=== PATIENT | male | born 1985 | race Caucasian/White ===

== ENCOUNTER → 2017-02-01 | Outpatient (CLI) | payer OTHER ==
[~2017-02-01] MED LIST: PERFLUTREN LIPID MICROSPHERE (DEFINITY) IV ONE
--- NOTE | 2017-02-01 17:03 | EXERCISE STRESS ECHO ---
*NOTICE TO RECEIVING REPUBLICAN AGENCY This information is strictly Confidential and protected under [place] law. [place] law prohibits you from making any further disclosure of this information unless further disclosure is expressly permitted by the written consent of the person to whom it pertains or is authorized by law. A general authorization for the release of medical or other information is not sufficient for this purpose. Hospital accepts no responsibility if the information is made available to any other person, INCLUDING THE PATIENT. Interpretation Summary * Name: EMILIANO HADLEY Study Date: 02/01/2017 10:14 AM BP: 130/65 mmHg * Patient Location: [facility] HR: 80 * : 1985 (M/d/yyyy) Gender: Male Height: 72 in * Age: 31 yrs Ethnicity: CA Weight: 204 lb * Ordering Physician: Alonso Centeno * Referring Physician: Alonso Centeno * Performed By: María Cardenas RDCS * * Reason For Study: Chest pain * BSA: 2.1 m2 * The exercise echocardiographic examination is normal without resting left ventricular wall motion abnormalities or inducible ischemia. * Exercise capacity is average. * -- Conclusions -- * Ejection Fraction = 60-65%. * Pulse wave TDI of the anterior and posterior mitral annulas demonstrates normal LV relaxation * No significant valvular pathology. Procedure Details * ECHOEX, CPT #04194 * ECHO DOPPLER, CPT #[id number] * ECHO COLOR FLOW, CPT #[id number] * A contrast injection of Definity was performed to improve assessment of LV function. * Contrast was injected into an intravenous site in the left arm. * One vial of Definity ultrasound contrast was diluted in normal saline to a total volume of 10 ml. A total of '4' ml of solution was administered during imaging. * Lot # [id number] of Definity utilized for procedure. * Expiration date FEB 20. * The attending nurse who injected the contrast agent was Esperanza Bowman RN. Left Ventricle * The left ventricle is normal in size. * There is no thrombus. * There is normal left ventricular wall thickness. * Ejection Fraction = 60-65%. * Left ventricular systolic function is normal. * Resting wall motion: Normal. Stress wall motion: Appropriate increase in Left ventricular systolic function and decrease in cavity size. No stress induced segmental wall motion abnormalities. * The left ventricular ejection fraction increases normally with stress. The left ventricular end-systolic cavity size reduces post-stress (normal response). The left ventricular wall motion with stress is normal. Right Ventricle * The right ventricle is normal in size and function. Atria * The left atrial size is normal. * Right atrial size is normal. * No ASD detected; PFO is not assessed. Mitral Valve * The mitral valve is normal. * There is no mitral valve stenosis. * Significant mitral regurgitation is absent. Tricuspid Valve * The tricuspid valve is normal. * There is no tricuspid stenosis. * There is trace tricuspid regurgitation. Aortic Valve * The aortic valve is trileaflet. * No hemodynamically significant valvular aortic stenosis. * No aortic regurgitation is present. Pulmonic Valve * The pulmonic valve is not well visualized. Great Vessels * The aortic root is normal size. Pericardium * There is no pericardial effusion. Stress Parameters * The baseline ECG displays normal sinus rhythm. * Stress ECG: No ST changes. No arrhythmias. * The stress portion of this study was personally supervised by the undersigned interpreting physician. * Rest heart rate was '80' BPM. * Rest blood pressure was '130/65' * Maximum heart rate achieved was 196 bpm. * Maximum heart rate was 103 % of maximum age-predicted heart rate. * Maximum blood pressure was '181/74' * Total exercise time was '11:40' * Maximum exercise MET level achieved was '13.40' METS * Maximum treadmill speed was '4.20' miles per hour. * Maximum treadmill elevation was '16.00'% grade. * Exercise was terminated due to 'achieving target heart rate' * Normal blood pressure response to exercise. * Exercise was stopped due to fatigue. * Average exercise tolerance. Left Ventricular Diastolic Function * Pulse wave TDI of the anterior and posterior mitral annulas demonstrates normal LV relaxation MMode 2D Measurements and Calculations IVSd 0.72 cm LVIDd 4.4 cm LVIDs 3.0 cm LVPWd 1.0 cm IVS/LVPW 0.70 FS 33.1 % EDV(Teich) 88.8 ml ESV(Teich) 33.8 ml EF(Teich) 61.9 % EDV(cubed) 86.5 ml ESV(cubed) 25.9 ml EF(cubed) 70.1 % LV mass(C)d 123.3 grams LV mass(C)dI 57.4 grams/m\S\2 SV(Teich) 54.9 ml SI(Teich) 25.6 ml/m\S\2 SV(cubed) 60.6 ml SI(cubed) 28.2 ml/m\S\2 Ao root diam 3.0 cm Ao root area 7.3 cm\S\2 ACS 2.3 cm LA dimension 3.5 cm asc Aorta Diam 3.0 cm LA/Ao 1.2 LVOT diam 2.0 cm LVOT area 3.1 cm\S\2 LVAd ap4 35.0 cm\S\2 LVLd ap4 8.6 cm EDV(MOD-sp4) 118.9 ml EDV(sp4-el) 120.4 ml LVAs ap4 17.9 cm\S\2 LVLs ap4 6.5 cm ESV(MOD-sp4) 42.5 ml ESV(sp4-el) 41.9 ml EF(MOD-sp4) 64.3 % EF(sp4-el) 65.2 % LVAd ap2 26.6 cm\S\2 LVLd ap2 7.6 cm EDV(MOD-sp2) 76.4 ml EDV(sp2-el) 78.9 ml LVAs ap2 13.5 cm\S\2 LVLs ap2 6.0 cm ESV(MOD-sp2) 26.0 ml ESV(sp2-el) 25.6 ml EF(MOD-sp2) 65.9 % EF(sp2-el) 67.6 % LVLd %diff -13.58 % EDV(MOD-bp) 100.7 ml LVLs %diff -7.63 % ESV(MOD-bp) 34.8 ml EF(MOD-bp) 65.5 % SV(MOD-sp4) 76.4 ml SI(MOD-sp4) 35.6 ml/m\S\2 SV(MOD-sp2) 50.4 ml SI(MOD-sp2) 23.5 ml/m\S\2 SV(MOD-bp) 65.9 ml SI(MOD-bp) 30.7 ml/m\S\2 SV(sp4-el) 78.5 ml SI(sp4-el) 36.5 ml/m\S\2 SV(sp2-el) 53.4 ml SI(sp2-el) 24.8 ml/m\S\2 Doppler Measurements and Calculations MV E max rafael 85.2 cm/sec MV A max rafael 42.1 cm/sec MV E/A 2.0 MV dec time 0.33 sec Ao V2 max 120.4 cm/sec Ao max PG 5.8 mmHg Ao max PG (full) 2.8 mmHg MICHAEL(V,A) 2.2 cm\S\2 MICHAEL(V,D) 2.2 cm\S\2 LV V1 max PG 3.0 mmHg LV V1 max 86.0 cm/sec PA V2 max 92.0 cm/sec PA max PG 3.4 mmHg PA acc slope 530.2 cm/sec\S\2 PA acc time 0.13 sec PI max rafael 120.9 cm/sec PI max PG 5.8 mmHg PI dec slope 64.5 cm/sec\S\2 PI P1/2t 549.1 msec TR max rafael 94.4 cm/sec PA pr(Accel) 18.6 mmHg
== END | disposition home or self-care (01) ==
LOC: C.CPL 10:03
PROVIDERS: ATTEND Internal Medicine Interventional Cardiology
DX: R07.9 Chest pain, unspecified (principal)

== ENCOUNTER 2017-07-13 10:35 | Emergency (ER) | payer OTHER ==
[~2017-07-13] VITALS: Ht 182.9 cm; Wt 94.0 kg
[2017-07-13 10:41] VITALS: TEMP 36.7; Ht 182.9 cm; Wt 94.0 kg
[2017-07-13] MEDS ORDERED: SODIUM CHLORIDE 0.9% 1000ML 1,000 ML IV STA (11:03)
[2017-07-13] MEDS ORDERED: ASPIRIN 81 MG CHEW PO STA (11:03)
[2017-07-13 11:11] VITALS: O2SAT 98
--- NOTE | 2017-07-13 11:12 | EMERGENCY ROOM VISIT NOTE ---
History Report prepared by Mignon: Юлия Miller Under the Supervision of: Dr. Roger Hale M.D. First contact with patient: 10:50 Chief Complaint: CHEST PAIN Stated Complaint: KIDNEY/CHEST PAIN Nursing Triage Summary: [facility] chest discomfort symptoms in january. came back from [place] and saw a hearing therapy teacher. had stress test completed. unknown of results but pain went away. patient states pain reoccured started 2 weeks ago. since then patient has had intermittent chest tightness that radiates to left side of arm. c/o numbness and tingling to left arm. patient states pain worsened last night. more localized to left side of chest. History of Present Illness The patient is a 31 year old male who presents to the Emergency Room with complaints of intermittent chest pain and left arm pain beginning in January 2017 when he went to [facility]. His chest pain reoccurred in the last few days. Pain is over his left chest and radiates to his left arm. Pain is mild in nature, feels like pressure/throbbing. No associated shortness of breath. He notes that 2 weeks ago, he had pain in his left lower thigh and describes the pain as a pressure. He denies any recent travel, hemoptysis, exogenous hormone usage, or history of thromboembolic disease. He reports he has been having chest pain since January 2017. He reports he had a stress test done here on but does not know his results. Source of History: patient Onset: January 2017 Position: chest, arm (left) Quality: pressure Timing: intermittent Associated Symptoms: + numbness (left fingers) Review of Systems See HPI for pertinent positives and negatives. A total of ten systems were reviewed and were otherwise negative. Family History No pertinent family history Social History Smoking Status: Former Smoker Drug Use: none Current/Historical Medications Scheduled PRN Aspirin (Darrell Aspirin Ec Low Dose), 324 MG PO DAILY PRN for Pain or Fever Allergies Coded Allergies: No Known Allergies (Unverified , 07/13/17) Physical Exam Vital Signs Date Time Temp Pulse Resp B/P (MAP) Pulse Ox O2 Delivery O2 Flow Rate FiO2 07/13/17 13:31 61 20 120/75 99 Room Air 07/13/17 13:19 56 07/13/17 12:31 56 20 134/75 99 Room Air 07/13/17 11:16 79 20 124/83 96 Room Air 07/13/17 11:11 98 Room Air 07/13/17 11:11 98 Room Air 07/13/17 11:00 98 Room Air 07/13/17 10:59 77 07/13/17 10:41 36.7 82 18 139/81 96 Room Air Physical Exam Physical Exam GENERAL: He is oriented to person, place, and time. He appears well-developed and well-nourished. He does not appear distressed. ____ HENT: Exam performed. Head: Normocephalic and atraumatic. Right Ear: External ear normal. No mastoid tenderness. Left Ear: External ear normal. No mastoid tenderness. Mouth/Throat: The oropharynx is clear and moist. No trismus in the jaw. No dental abscesses or uvula swelling. No oropharyngeal exudate or tonsillar abscesses. ____ EYES: Conjunctivae and EOM are normal. Pupils are equal, round, and reactive to light. Right eye exhibits no discharge. Left eye exhibits no discharge. No scleral icterus. ____ NECK: Normal range of motion. Neck supple. No JVD present. No spinous process tenderness present. No carotid bruit present. No rigidity. No tracheal deviation and normal range of motion present. No Brudzinski's sign and no Kernig 's sign noted. ____ CV: Normal rate, regular rhythm, normal heart sounds and intact distal pulses. There is no peripheral edema. Palpable radial pulses bue. ____ PULM/CHEST: Effort normal and breath sounds normal. No respiratory distress. No stridor. He has no wheezes. He has no rales. Chest Wall: He exhibits no tenderness. ____ ABD: The abdomen is soft. Bowel sounds are normal. He has no distension. No mass is present. There is no tenderness. There is no rebound, no guarding, no Carpio's sign and no tenderness at McBurney's point. Rovsig negative MUSC/SKEL: Normal range of motion. There is no peripheral edema or deformity. Pain on palpation of the left posterior thigh and popliteal area. Palpable DP and PT pulses bilaterally. LYMPH: No cervical adenopathy. ____ NEURO: He is alert and oriented to person, place, and time. He has normal strength. No cranial nerve deficit or sensory deficit. Coordination and gait normal. GCS eye subscore is 4. GCS verbal subscore is 5. GCS motor subscore is 6. Cerebellar tests wnl. ____ SKIN: Skin is warm and dry. He is not diaphoretic. ____ PSYCH: He has a normal mood and affect. His behavior is normal. Judgment and thought content normal. ____ Medical Decision & Procedures ER Provider Diagnostic Interpretation: Radiology results as stated below per my review and radiologist interpretation: BILATERAL LOWER EXTREMITY VENOUS DOPPLER HISTORY: Acute bilateral lower extremity swelling r/o dvt COMPARISON STUDY: None. FINDINGS: There is normal compressibility, flow, and augmentation within the bilateral lower extremity deep venous systems. IMPRESSION: No sonographic evidence of deep venous thrombosis within the right or left lower extremity. Electronically signed by: Hang Fuchs M.D. 07/13/2017 12:04 PM Dictated Date/Time: 07/13/2017 12:03 PM Laboratory Results 07/13/17 11:00 Red Blood Count 5.26, Mean Corpuscular Volume 86.7, Mean Corpuscular Hemoglobin 31.0, Mean Corpuscular Hemoglobin Concent 35.7, Mean Platelet Volume 10.2, Neutrophils (%) (Auto) 65.3, Lymphocytes (%) (Auto) 25.4, Monocytes (%) (Auto) 6.9, Eosinophils (%) (Auto) 1.3, Basophils (%) (Auto) 0.5, Neutrophils # (Auto) 5.59, Lymphocytes # (Auto) 2.17, Monocytes # (Auto) 0.59, Eosinophils # (Auto) 0.11, Basophils # (Auto) 0.04 07/13/17 11:00 Test 07/13/17 11:00 07/13/17 12:05 White Blood Count 8.55 K/uL (4.8-10.8) Red Blood Count 5.26 M/uL (4.7-6.1) Hemoglobin 16.3 g/dL (14.0-18.0) Hematocrit 45.6 % (42-52) Mean Corpuscular Volume 86.7 fL (80-100) Mean Corpuscular Hemoglobin 31.0 pg (25-34) Mean Corpuscular Hemoglobin Concent 35.7 g/dl (32-36) Platelet Count 263 K/uL (130-400) Mean Platelet Volume 10.2 fL (7.4-10.4) Neutrophils (%) (Auto) 65.3 % Lymphocytes (%) (Auto) 25.4 % Monocytes (%) (Auto) 6.9 % Eosinophils (%) (Auto) 1.3 % Basophils (%) (Auto) 0.5 % Neutrophils # (Auto) 5.59 K/uL (1.4-6.5) Lymphocytes # (Auto) 2.17 K/uL (1.2-3.4) Monocytes # (Auto) 0.59 K/uL (0.11-0.59) Eosinophils # (Auto) 0.11 K/uL (0-0.5) Basophils # (Auto) 0.04 K/uL (0-0.2) RDW Standard Deviation 39.2 fL (36.4-46.3) RDW Coefficient of Variation 12.3 % (11.5-14.5) Immature Granulocyte % (Auto) 0.6 % Immature Granulocyte # (Auto) 0.05 K/uL (0.00-0.02) Prothrombin Time 10.0 SECONDS (9.0-12.0) Prothromb Time International Ratio 1.0 (0.9-1.1) Activated Partial Thromboplast Time 27.3 SECONDS (21.0-31.0) Partial Thromboplastin Ratio 1.1 D-Dimer < 190 ug/L FEU (0-500) Anion Gap 8.0 mmol/L (3-11) Est Creatinine Clear Calc Drug Dose 126.1 ml/min Estimated GFR () 113.8 Estimated GFR (Non- 98.2 BUN/Creatinine Ratio 22.2 (10-20) Calcium Level 9.2 mg/dl (8.5-10.1) Troponin I < 0.015 ng/ml (0-0.045) Urine Color YELLOW Urine Appearance CLEAR (CLEAR) Urine pH 7.0 (4.5-7.5) Urine Specific [place] 1.018 (1.000-1.030) Urine Protein NEG (NEG) Urine Glucose (UA) NEG (NEG) Urine Ketones NEG (NEG) Urine Occult Blood NEG (NEG) Urine Nitrite NEG (NEG) Urine Bilirubin NEG (NEG) Urine Urobilinogen NEG (NEG) Urine Leukocyte Esterase NEG (NEG) Urine Opiates Screen NEG (NEG) Urine Methadone, Qualitative NEG (NEG) Urine Barbiturates NEG (NEG) Urine Phencyclidine (PCP) Level NEG (NEG) Ur Amphetamine/Methamphetamine NEG (NEG) MDMA (Ecstasy) Screen NEG (NEG) Urine Benzodiazepines Screen NEG (NEG) Urine Cocaine Metabolite NEG (NEG) Urine Marijuana (THC) NEG (NEG) Laboratory results reviewed by me Medications Administered Medications (Trade) Dose Ordered Sig/Gwen Route Start Time Stop Time Status Last Admin Dose Admin Aspirin (Aspirin Chew) 324 mg NOW STAT PO 07/13/17 11:03 07/13/17 11:06 DC 07/13/17 11:15 324 MG Sodium Chloride 1,000 ml @ 999 mls/hr Q1H1M STAT IV 07/13/17 11:03 07/13/17 12:03 DC 07/13/17 11:15 999 MLS/HR ECG Per My Interpretation Indication: chest pain Rate (beats per minute): 63 Rhythm: sinus rhythm Findings: other (MO and QRS and QTC within normal limits, no ST elevation or depression) Change: Repeat EKG: sinus rhythm, rate of 72, MO and QRS and QTS within normal limits, no ST elevation or depression ED Course 1059: The patient was evaluated in room C3. A complete history and physical exam was performed. EMR reviewed, patient had a negative stress echo done in January 2017. 1103: Sodium chloride 1000 ml @ 999 mls/hr IV Aspirin 324 mg PO 1319: Vital signs are stable. Labs within normal limits including troponin and d -dimer. EKG and imaging within normal limits. Follow up for regular scheduled PCP appointment. DISCHARGE - Plan of care discussed with patient and questions answered. The patient was given both verbal and printed discharge instructions. The patient verbalized understanding and ability to comply. The patient is to seek outpatient follow up as noted in the discharge instructions. The patient verbalized understanding and ability to comply. The patient is discharged in stable condition. The patient was instructed to return for worsening symptoms. Medical Decision EMR reviewed, patient had a negative stress echo done in January 2017. Vital signs are stable. Labs within normal limits including troponin and d-dimer. EKG and imaging within normal limits. Follow up for regular scheduled PCP appointment. DISCHARGE - Plan of care discussed with patient and questions answered. The patient was given both verbal and printed discharge instructions. The patient verbalized understanding and ability to comply. The patient is to seek outpatient follow up as noted in the discharge instructions. The patient verbalized understanding and ability to comply. The patient is discharged in stable condition. The patient was instructed to return for worsening symptoms. Medication Reconcilliation Current Medication List: was personally reviewed by me Blood Pressure Screening Patient's blood pressure: Normal blood pressure Blood pressure disposition: Did not require urgent referral Impression Primary Impression: Chest pain Scribe Attestation The scribe's documentation has been prepared under my direction and personally reviewed by me in its entirety. I confirm that the note above accurately reflects all work, treatment, procedures, and medical decision making performed by me. The chart was completed utilizing [email or web address] Speech voice recognition software. Grammatical errors, random word insertions, pronoun errors, and incomplete sentences are an occasional consequence of this system due to software limitations, ambient noise, and hardware issues. Any formal questions or concerns about the content, text, or information contained within the body of this dictation should be directly addressed to the physician for clarification. Departure Information Dispostion Home / Self-Care Referrals Alondra Khan DO (PCP) Forms HOME CARE DOCUMENTATION FORM, IMPORTANT VISIT INFORMATION Patient Instructions My [facility] Problem Qualifiers Primary Impression: Chest pain Chest pain type: unspecified Qualified Codes: R07.9 - Chest pain, unspecified
[2017-07-13 11:13] LABS: BASO % 0.5 %; BASO ABS # 0.04 K/uL (0-0.2); EOS % 1.3 %; EOS ABS # 0.11 K/uL (0-0.5); HEMATOCRIT 45.6 % (42-52); HEMOGLOBIN 16.3 g/dL (14.0-18.0); IG# 0.05 K/uL (0.00-0.02); LYMPH % 25.4 %; LYMPH ABS # 2.17 K/uL (1.2-3.4); MEAN CELL VOLUME 86.7 fL (80-100); MEAN CORPUSCULAR HGB CONC 35.7 g/dl (32-36); MEAN PLATELET VOLUME 10.2 fL (7.4-10.4); MONO % 6.9 %; MONO ABS # 0.59 K/uL (0.11-0.59); NEUT % 65.3 %; NEUT ABS # 5.59 K/uL (1.4-6.5); PLATELET COUNT 263 K/uL (130-400); RED CELL DISTRIBUTION WIDTH CV 12.3 % (11.5-14.5); RED CELL DISTRIBUTION WIDTH SD 39.2 fL (36.4-46.3); WHITE BLOOD COUNT 8.55 K/uL (4.8-10.8)
[2017-07-13 11:25] LABS: PTT PATIENT 27.3 SECONDS (21.0-31.0)
[2017-07-13 11:28] LABS: BLOOD UREA NITROGEN 23 mg/dl (7-18); CALCIUM 9.2 mg/dl (8.5-10.1); CARBON DIOXIDE 26 mmol/L (21-32); CREATININE 1.02 mg/dl (0.60-1.40); GLUCOSE 103 mg/dl (70-99); SODIUM 136 mmol/L (136-145)
--- NOTE | 2017-07-13 12:05 | DIAGNOSTIC IMAGING REPORT ---
BILATERAL LOWER EXTREMITY VENOUS DOPPLER HISTORY: Acute bilateral lower extremity swelling r/o dvt COMPARISON STUDY: None. FINDINGS: There is normal compressibility, flow, and augmentation within the bilateral lower extremity deep venous systems. IMPRESSION: No sonographic evidence of deep venous thrombosis within the right or left lower extremity. Electronically signed by: Hang Fuchs M.D. 07/13/2017 12:04 PM Dictated Date/Time: 07/13/2017 12:03 PM
[2017-07-13] MEDS ORDERED: ASPI1TAB2 PO (12:10)
[2017-07-13 13:31] VITALS: BP 120/75; PULSE 61; O2SAT 99
--- NOTE | 2017-07-13 13:48 | DIAGNOSTIC IMAGING REPORT ---
CHEST 2 VIEWS ROUTINE HISTORY: 31 years-old Male cp acute atypical chest pain COMPARISON: None available TECHNIQUE: PA and lateral views of the chest FINDINGS: Cardiomediastinal and hilar silhouettes are within normal limits. No pneumothorax, pleural effusion, focal airspace consolidation or overt pulmonary edema. The bones of the chest appear grossly intact. IMPRESSION: No acute process. The above report was generated using voice recognition software. It may contain grammatical, syntax or spelling errors. Electronically signed by: Hang Fuchs M.D. 07/13/2017 1:47 PM Dictated Date/Time: 07/13/2017 1:46 PM
== END 2017-07-13 13:47 | disposition home or self-care (01) ==
LOC: C.EDB 10:38 → C.EDC 13:47
DX: R07.9 Chest pain, unspecified (principal); Z87.891 Personal history of nicotine dependence

== ENCOUNTER 2018-05-01 12:44 | Inpatient (IN) ==
[2018-05-01] MEDS ORDERED: ONDANSETRON INJ 2 MG/ML 2 ML VIAL IV PRN (17:04)
[2018-05-01] MEDS ORDERED: ACETAMINOPHEN 325 MG TAB PO PRN (17:04)
[2018-05-01] MEDS ORDERED: ALUMINUM/MAGNESIUM SUSP 30 ML UDC PO PRN (17:04)
--- NOTE | 2018-05-01 17:18 | History & Physical Report ---
Date of Service May 01, 2018 Assessment & Plan (1) Paresthesias: This patient is a 32-year-old male with a history of seasonal allergies and a 1 year history of intermittent chest pain with radiation to the left upper and lower extremity, who presents with 1 month of progressively worsening symptoms which mainly include dry cough, worsening SOB, severe fatigue, dizziness, heaviness and tight feeling in the left lower extremity, diffuse muscle spasms but mostly pains in the upper and lower back, constant mild headache, and bilateral upper extremity numbness in the distribution of the ulnar side of the forearm and the fourth and fifth digits of each hand. He has also had blurry vision in the right eye off and on the last several days and did have one episode of numbness in the roof of his mouth. His symptoms are diffuse but seem like they could all be interrelated with either a neurological disorder or perhaps an autoimmune disorder given his strongly positive ELIU. He does have a pending appointment with a charting clerk at [facility] in [place] on May 08 that he should keep regarding his positive ELIU and his symptoms. Lyme disease titer again is negative on multiple occasions despite his significant exposure to Lyme disease. I do feel that he warrants an expedited neurological workup as well to rule out intracranial lesion, or spinal cord lesion, multiple sclerosis. With the blurry vision in the right eye, need to consider optic neuritis. -Admit to telemetry given the chest pain and shortness of breath symptoms for further cardiac workup as below -Consult neurology for further evaluation and recommendations as appreciated -Check RPR, B12 -Check MRI of the brain, cervical spine, and thoracic spine -Consideration should be made for lumbar puncture but will await neurology evaluation and recommendations before proceeding with this (2) Dizziness: He reports worsening dizziness like the room is spinning around him and sometimes with tunnel vision, as well as a mild bitemporal headache that radiates to the parietal and occipital regions bilaterally and not associated with photophobia, but is associated with nausea for the last 3-4 weeks. He is also had intermittent right eye blurry vision that comes on for 1-2 hours at a time and then goes away. He has not seen an bottom turner -Check MRI of the brain -Consult neurology given the host of symptoms of dizziness, headache, paresthesias, and intermittent weakness (3) Headache: See above -Can take Tylenol as needed (4) Blurry vision, right eye: Plan as above (5) Chest pain: The chest pain, shortness of breath, and left-sided heavy sensation has been coming and going for over a year since he had a trip to [facility]. Since that time, he had a normal cardiac workup to include echocardiogram, 24-hour Holter monitor, ECG. In the last month, however those symptoms have all gotten progressively worse and become constant and more severe. 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 He was seen in the ER on 04/[address] angiogram of the chest that was negative for PE or any other abnormality. ECG here is normal There is no evidence on exam of congestive heart failure. Chest x-ray is normal here again. Troponin is negative He could have some sort of pericarditis although less likely without ECG changes This has seemed to have gotten better after several doses of prednisone which is now discontinued, as well as starting on doxycycline Perhaps it was some sort of atypical pneumonitis that is now improving with doxycycline and 2 doses of prednisone -Check echocardiogram -Monitor on telemetry -Continue doxycycline 100 mg p.o. twice daily for now to finish out a 10-day course (6) Fatigue: Monospot has been negative, Lyme disease negative, unclear with the causes Could be something autoimmune related given the positive ELIU -Continue workup here as outlined -Keep appointment with rheumatology next week (7) Weakness: In the left upper and lower extremity subjectively, but none in exam here. He reports this is intermittent -Checking MRI of the brain, cervical and thoracic spine as above -Appreciate neurology recommendations (8) Dyspnea: Pulse ox at rest here is 95% on room air, pulse ox with ambulation does go down to 92% which is abnormal. Chest x-ray is normal. ABG here is normal He had CT angiogram 1 month ago when he had similar symptoms that was negative for pulmonary embolism -Checking echocardiogram -Continue treatment with doxycycline for bronchitis (9) Back pain: Coming and going, likely related to systemic process -Tylenol as needed for pain -MRIs for workup as above (10) DVT prophylaxis: SCDs Disposition-admit to telemetry unit History of Present Illness Chief Complaint: shortness of breath, bilateral upper extremity numbness/ tingling, left lower extremity weakness Primary Care Provider: Alondra Khan, This patient is a 32-year-old male with a history of seasonal allergies and a 1 year history of intermittent chest pain with radiation to the left upper and lower extremity, who presents with 1 month of progressively worsening symptoms which mainly include dry cough, worsening shortness of breath, severe fatigue, dizziness, heaviness and tight feeling in the left lower extremity, diffuse muscle spasms but mostly pains in the upper and lower back, constant mild headache, and bilateral upper extremity numbness in the distribution of the ulnar side of the forearm and the fourth and fifth digits of each hand. He has also had blurry vision in the right eye off and on the last several days and did have one episode of numbness in the roof of his mouth. The chest pain, shortness of breath, and left-sided heavy sensation has been coming and going for over a year since he had a trip to [facility]. Since that time, he had a normal cardiac workup to include echocardiogram, 24-hour Holter monitor, ECG. In the last month, however those symptoms have all gotten progressively worse and become constant and more severe. 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 He was seen in the ER on 04/[address] angiogram of the chest that was negative for PE or any other abnormality. He also reports worsening dizziness like the room is spinning around him and sometimes with tunnel vision, as well as a mild bitemporal headache that radiates to the parietal and occipital regions bilaterally and not associated with photophobia, but is associated with nausea for the last 3-4 weeks. He is also had intermittent right eye blurry vision that comes on for 1-2 hours at a time and then goes away. He has not seen an bottom turner. He was referred to a upper and bottom lacer hand whom he saw 1 week ago who ordered a variety of studies including carotid Doppler, lower extremity arterial Doppler, hypersensitivity pneumonitis panel, Lyme titer, immunoglobulins, IgE, all of which were normal. He was started on Doxycycline and prednisone, but 2 days after starting these medications is when he experienced the paresthesias and numbness in the ulnar distribution of the bilateral upper extremities; he decided to stop the prednisone thinking it was a possible side effect. ROS: He denies any fevers but has had some sweats and chills. He has lost 10 pounds in the last month unintentionally. He denies any lymphadenopathy that he is noted. He denies abdominal pains or urinary symptoms, no changes in bowel habits, no blood in the stool or urine. Denies any other joint pains or swelling. He denies any other rashes He has been bit by a tick at least "50-60 times" in his life and he works at a [employer] in the [employer]. He conversed with his PCP who asked that we directly admit the patient to expedite a neurological workup given the progressive nature of his symptoms. I personally spoke with his PCP on the phone regarding his history and current condition. Allergies Allergy/AdvReac Type Severity Reaction Status Date / Time No Known Allergies Allergy Verified 04/13/18 18:30 Home Medications Home Medications Medication Instructions Recorded Confirmed Type meclizine 25 mg PO TID PRN #14 tab 04/13/18 05/01/18 Rx naproxen sodium [Aleve] 220 mg PO BID PRN 04/13/18 05/01/18 History doxycycline hyclate 100 mg PO BID 05/01/18 05/01/18 History Past Med/Surg History Medical History Seasonal allergies Chest pain (Chronic) Atypical chest pain (Inactive) Surgical History History of tonsillectomy Family History Uncle , at age 32 Heart attack Sister Chad-Danlos disease Hypothyroidism Thyroid nodule Mother Tachyarrhythmia Father Prostate cancer Other Heart disease Social History marital status: Single Current Living Situation: Alone Current Living Situation Comment: Previously sexually active with females, uses protection, no history of STIs current occupational status: employed 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 [employer] Other Information That Helps Us Care for You: No other: Graduated from [employer] Feels Safe at Home: Yes Smoking Status: Former smoker Tobacco Type: cigarettes Years Smoked: 7 Smoking End Date: 2015 Hx Alcohol Use: No Hx Substance Use: No Beliefs That Will Affect Care: None Preferred Language: Namibian Communication Ability: Effective Review of Systems All systems reviewed & are unremarkable except as noted in HPI & below Physical Exam 2 Vital Signs (Past 24 Hours): Last Vital Signs Temp 36.6 C 05/01/18 15:48 Pulse 87 05/01/18 15:48 Resp 18 05/01/18 15:48 BP 135/76 05/01/18 15:48 Pulse Ox 95 05/01/18 15:48 Constitutional: WD/WN, vitals as above + well hydrated, average body habitus, well groomed and cooperative; no acute distress, not ill appearing, not diaphoretic and not lethargic Eyes: PERRL, conjunctivae normal, anicteric sclerae normal visual reynoso by confrontation, normal accommodation and EOM intact bilaterally; no eyelid abnormality, normal light reflex, no anisocoria, no nystagmus (But extraocular muscle testing caused significant vertigo) and no photophobia ENMT: external ear and nose normal, oropharynx normal Ears: no hearing impairment Nose: no nasal discharge and no sinus tenderness Mouth: no lip abnormality, no oropharynx abnormality, no muffled voice and TMJ nontender Throat: no posterior oropharynx abnormality Neck: trachea midline, no thyromegaly normal visual inspection; no neck crepitus, no submandibular swelling and neck nontender Thyroid: normal thyroid; no thyroid mass, no thyroid nodules and thyroid nontender Respiratory: normal respiratory effort, lungs clear to auscultation Cardiovascular: RRR, no murmur, no edema Heart Sounds: normal S1 and normal S2; no gallop and no murmur Vessels: normal peripheral pulses, femoral pulses present and dorsalis pedis pulses present; no JVD, no renal bruit and no temporal artery tenderness Extremities: normal capillary refill ; no calf tenderness and no edema Gastrointestinal (Abdomen): normal bowel sounds, soft, nontender, no hepatosplenomegaly Inspection/Auscultation: abdomen not distended and no abdominal wall ecchymosis Musculoskeletal: Extremities: extremities normal to inspection; no cyanosis and no clubbing Skin: no rashes, warm and dry Neurologic: CN's II-XI intact bilaterally, deep tendon reflexes 2+ bilaterally (Except unable to elicit DTR throughout the right upper extremity, otherwise 2+ throughout left upper biceps, triceps, brachioradialis, and bilateral lower extremity patellar and Achilles were 2+), moves all extremities (Motor strength 5 out of 5 upper and lower extremities bilaterally) and awake; no focal motor deficits Speech / Cognition: normal speech, no expressive aphasia, no receptive aphasia and normal cognition Motor/Sensory: no tremor, normal movement and no sensory deficit (Intact to light touch throughout upper and lower extremities bilaterally) Gait: no ataxic gait (With normal gait, normal tandem gait, normal toe and heel walking gait), no spastic hemiparesis gait and no wide-based gait Coordination: normal Romberg test and normal tandem gait Psychiatric: A+Ox3, euthymic affect Lymphatic: no cervical or axillary lymphadenopathy no lymphedema, no preauricular lymphadenopathy, no subclavicular lymphadenopathy and no inguinal lymphadenopathy Results & Data Laboratory Results 05/01/18 05/01/18 05/01/18 Range/Units 20:21 17:34 17:16 WBC (4.8-10.8) K/uL RBC (4.7-6.1) M/uL Hgb (14.0-18.0) g/dL Hct (42-52) % MCV (80-100) fL MCH (25-34) pg MCHC (32-36) g/dL RDW Std Deviation (36.4-46.3) fL RDW Coeff of Khushi (11.5-14.5) % Plt Count (130-400) K/uL MPV (7.4-10.4) fL Immature Gran % (Auto) % Neut % (Auto) % Lymph % (Auto) % Gosper % (Auto) % Eos % (Auto) % Baso % (Auto) % Immature Gran # (Auto) (0.00-0.02) K/uL Neut # (Auto) (1.4-6.5) K/uL Lymph # (Auto) (1.2-3.4) K/uL Gosper # (Auto) (0.11-0.59) K/uL Eos # (Auto) (0-0.5) K/uL Baso # (Auto) (0-0.2) K/uL ESR (0-14) mm/hr ABG pH 7.44 (7.35-7.45) ABG pCO2 40 (35-46) mmHg ABG pO2 83 (80-95) mm/Hg ABG HCO3 26 H (19-24) mmol/L ABG O2 Saturation 96.5 H (90-95) % ABG Base Excess 2.1 H (-9-1.8) mEq/L Gianni Test POS (Pos) Barometric Pressure 740.6 mm/Hg Oxygen Given ROOM AIR Sodium (136-145) mmol/L Potassium (3.5-5.1) mmol/L Chloride (98-107) mmol/L Carbon Dioxide (21-32) mmol/L Anion Gap (3-11) BUN (7-18) mg/dl Creatinine (0.6-1.4) mg/dl Est Cr Clr Drug Dosing ml/min Est GFR ( Amer) Est GFR (Non-Af Amer) BUN/Creatinine Ratio (10-20) Glucose (70-99) mg/dl Calcium (8.5-10.1) mg/dl Phosphorus (2.5-4.9) mg/dl Magnesium (1.8-2.4) mg/dl Total Bilirubin (0.1-1) mg/dl Direct Bilirubin (0-0.2) mg/dl AST (15-37) U/L ALT (12-78) U/L Alkaline Phosphatase (45-117) U/L Total Creatine Kinase (39-308) U/L Troponin I (0-0.045) ng/ml C-Reactive Protein (0-0.29) mg/dl Total Protein (6.4-8.2) gm/dl Albumin (3.4-5.0) gm/dl Vitamin B12 539 (211-911) pg/ml TSH (0.300-4.500) uIu/ml Urine Color Yellow Urine Appearance Clear (Clear) Urine pH 7.0 (4.5-7.5) Ur Specific [place] 1.012 (1.000-1.030) Urine Protein Negative (Negative) Urine Glucose (UA) Negative (Negative) Urine Ketones Negative (Negative) Urine Blood Negative (Negative) Urine Nitrite Negative (Negative) Urine Bilirubin Negative (Negative) Urine Urobilinogen Negative (Negative) Ur Leukocyte Esterase Negative (Negative) Rheumatoid Factor Lyme Disease IgG Ab (Negative) Lyme Disease IgM Ab (Negative) 05/01/18 05/01/18 05/01/18 Range/Units 17:16 17:16 17:16 WBC (4.8-10.8) K/uL RBC (4.7-6.1) M/uL Hgb (14.0-18.0) g/dL Hct (42-52) % MCV (80-100) fL MCH (25-34) pg MCHC (32-36) g/dL RDW Std Deviation (36.4-46.3) fL RDW Coeff of Khushi (11.5-14.5) % Plt Count (130-400) K/uL MPV (7.4-10.4) fL Immature Gran % (Auto) % Neut % (Auto) % Lymph % (Auto) % Gosper % (Auto) % Eos % (Auto) % Baso % (Auto) % Immature Gran # (Auto) (0.00-0.02) K/uL Neut # (Auto) (1.4-6.5) K/uL Lymph # (Auto) (1.2-3.4) K/uL Gosper # (Auto) (0.11-0.59) K/uL Eos # (Auto) (0-0.5) K/uL Baso # (Auto) (0-0.2) K/uL ESR (0-14) mm/hr ABG pH (7.35-7.45) ABG pCO2 (35-46) mmHg ABG pO2 (80-95) mm/Hg ABG HCO3 (19-24) mmol/L ABG O2 Saturation (90-95) % ABG Base Excess (-9-1.8) mEq/L Gianni Test (Pos) Barometric Pressure mm/Hg Oxygen Given Sodium (136-145) mmol/L Potassium (3.5-5.1) mmol/L Chloride (98-107) mmol/L Carbon Dioxide (21-32) mmol/L Anion Gap (3-11) BUN (7-18) mg/dl Creatinine (0.6-1.4) mg/dl Est Cr Clr Drug Dosing ml/min Est GFR ( Amer) Est GFR (Non-Af Amer) BUN/Creatinine Ratio (10-20) Glucose (70-99) mg/dl Calcium (8.5-10.1) mg/dl Phosphorus 3.7 (2.5-4.9) mg/dl Magnesium 2.6 H (1.8-2.4) mg/dl Total Bilirubin 0.4 (0.1-1) mg/dl Direct Bilirubin < 0.1 (0-0.2) mg/dl AST 18 (15-37) U/L ALT 55 (12-78) U/L Alkaline Phosphatase 80 (45-117) U/L Total Creatine Kinase 86 (39-308) U/L Troponin I < 0.015 (0-0.045) ng/ml C-Reactive Protein (0-0.29) mg/dl Total Protein 7.4 (6.4-8.2) gm/dl Albumin 4.3 (3.4-5.0) gm/dl Vitamin B12 (211-911) pg/ml TSH 0.870 (0.300-4.500) uIu/ml Urine Color Urine Appearance (Clear) Urine pH (4.5-7.5) Ur Specific [place] (1.000-1.030) Urine Protein (Negative) Urine Glucose (UA) (Negative) Urine Ketones (Negative) Urine Blood (Negative) Urine Nitrite (Negative) Urine Bilirubin (Negative) Urine Urobilinogen (Negative) Ur Leukocyte Esterase (Negative) Rheumatoid Factor Pending Lyme Disease IgG Ab Negative (Negative) Lyme Disease IgM Ab Negative (Negative) 05/01/18 05/01/18 05/01/18 Range/Units 17:16 17:16 17:16 WBC 10.09 (4.8-10.8) K/uL RBC 5.28 (4.7-6.1) M/uL Hgb 16.4 (14.0-18.0) g/dL Hct 46.3 (42-52) % MCV 87.7 (80-100) fL MCH 31.1 (25-34) pg MCHC 35.4 (32-36) g/dL RDW Std Deviation 39.6 (36.4-46.3) fL RDW Coeff of Khushi 12.4 (11.5-14.5) % Plt Count 245 (130-400) K/uL MPV 10.5 H (7.4-10.4) fL Immature Gran % (Auto) 0.4 % Neut % (Auto) 69.7 % Lymph % (Auto) 22.7 % Gosper % (Auto) 5.8 % Eos % (Auto) 1.0 % Baso % (Auto) 0.4 % Immature Gran # (Auto) 0.04 H (0.00-0.02) K/uL Neut # (Auto) 7.03 H (1.4-6.5) K/uL Lymph # (Auto) 2.29 (1.2-3.4) K/uL Gosper # (Auto) 0.59 (0.11-0.59) K/uL Eos # (Auto) 0.10 (0-0.5) K/uL Baso # (Auto) 0.04 (0-0.2) K/uL ESR 4 (0-14) mm/hr ABG pH (7.35-7.45) ABG pCO2 (35-46) mmHg ABG pO2 (80-95) mm/Hg ABG HCO3 (19-24) mmol/L ABG O2 Saturation (90-95) % ABG Base Excess (-9-1.8) mEq/L Gianni Test (Pos) Barometric Pressure mm/Hg Oxygen Given Sodium 136 (136-145) mmol/L Potassium 3.7 (3.5-5.1) mmol/L Chloride 102 (98-107) mmol/L Carbon Dioxide 26 (21-32) mmol/L Anion Gap 8.0 (3-11) BUN 17 (7-18) mg/dl Creatinine 0.80 (0.6-1.4) mg/dl Est Cr Clr Drug Dosing 146.8 ml/min Est GFR ( Amer) 138.0 Est GFR (Non-Af Amer) 119.0 BUN/Creatinine Ratio 20.7 H (10-20) Glucose 94 (70-99) mg/dl Calcium 8.9 (8.5-10.1) mg/dl Phosphorus (2.5-4.9) mg/dl Magnesium (1.8-2.4) mg/dl Total Bilirubin (0.1-1) mg/dl Direct Bilirubin (0-0.2) mg/dl AST (15-37) U/L ALT (12-78) U/L Alkaline Phosphatase (45-117) U/L Total Creatine Kinase (39-308) U/L Troponin I (0-0.045) ng/ml C-Reactive Protein < 0.29 (0-0.29) mg/dl Total Protein (6.4-8.2) gm/dl Albumin (3.4-5.0) gm/dl Vitamin B12 (211-911) pg/ml TSH (0.300-4.500) uIu/ml Urine Color Urine Appearance (Clear) Urine pH (4.5-7.5) Ur Specific [place] (1.000-1.030) Urine Protein (Negative) Urine Glucose (UA) (Negative) Urine Ketones (Negative) Urine Blood (Negative) Urine Nitrite (Negative) Urine Bilirubin (Negative) Urine Urobilinogen (Negative) Ur Leukocyte Esterase (Negative) Rheumatoid Factor Lyme Disease IgG Ab (Negative) Lyme Disease IgM Ab (Negative) ELIU previously done showed a homogenous and speckled pattern at a 1:320 ratio ECG Rhythm: normal sinus (With normal rate, no ischemic changes or conduction disturbances) Code Status & VTE Plan Code Status Full code VTE Prophylaxis Plan VTE Prophylaxis will be ordered: Yes Reason for no VTE drug order: Treatment not indicated
[2018-05-01 17:30] LABS: Basophils # (auto) 0.04 K/uL (0-0.2); Basophils % (auto) 0.4 %; Hematocrit (blood only) 46.3 % (42-52); Hemoglobin 16.4 g/dL (14.0-18.0); Immature Granulocytes # (auto) 0.04 K/uL (0.00-0.02); Immature Granulocytes % (auto) 0.4 %; Lymphocytes # (auto) 2.29 K/uL (1.2-3.4); Lymphocytes % (auto) 22.7 %; Mean Corpuscular Hgb Conc 35.4 g/dL (32-36); Mean Corpuscular Volume 87.7 fL (80-100); Mean Platelet Volume 10.5 fL (7.4-10.4); Monocytes # (auto) 0.59 K/uL (0.11-0.59); Monocytes % (auto) 5.8 %; Neutrophils # (auto) 7.03 K/uL (1.4-6.5); Neutrophils % (auto) 69.7 %; Platelet Count 245 K/uL (130-400); RDW Coefficient of Variation 12.4 % (11.5-14.5); RDW Standard Deviation 39.6 fL (36.4-46.3); Red Blood Count 5.28 M/uL (4.7-6.1); White Blood Count 10.09 K/uL (4.8-10.8)
[2018-05-01 17:52] LABS: Allen Test POS (Pos); HCO3 ABG 26 mmol/L (19-24); Oxygen Saturation ABG 96.5 % (90-95); PCO2 ABG 40 mmHg (35-46); PO2 ABG 83 mm/Hg (80-95); pH ABG 7.44 (7.35-7.45)
[2018-05-01 18:09] LABS: BUN Creatinine Ratio 20.7 (10-20); Blood Urea Nitrogen 17 mg/dl (7-18); C Reactive Protein < 0.29 mg/dl (0-0.29); Calcium 8.9 mg/dl (8.5-10.1); Carbon Dioxide 26 mmol/L (21-32); Chloride 102 mmol/L (98-107); Creatinine Clr Calc Pharmacy 146.8 ml/min; Glucose 94 mg/dl (70-99); Potassium 3.7 mmol/L (3.5-5.1); Sodium 136 mmol/L (136-145)
[2018-05-01 18:14] LABS: Alanine Aminotransferase 55 U/L (12-78); Albumin Level 4.3 gm/dl (3.4-5.0); Alkaline Phosphatase 80 U/L (45-117); Aspartate Aminotransferase 18 U/L (15-37); Bilirubin,Total 0.4 mg/dl (0.1-1); Creatine Kinase 86 U/L (39-308); Magnesium 2.6 mg/dl (1.8-2.4); Phosphorus 3.7 mg/dl (2.5-4.9); Total Protein 7.4 gm/dl (6.4-8.2); Troponin I < 0.015 ng/ml (0-0.045)
[2018-05-01 18:16] LABS: Lyme Ab IgM w/WB Rflx Negative (Negative)
[2018-05-01 18:17] LABS: Lyme Ab IgG w/WB Rflx Negative (Negative)
[2018-05-01 18:21] LABS: Bilirubin Direct < 0.1 mg/dl (0-0.2)
--- NOTE | 2018-05-01 19:09 | XRay Report ---
XR orbits for MRI CLINICAL HISTORY: 32 years-old Male presenting with possible metal exposure. TECHNIQUE: 3 views of the orbits were obtained. COMPARISON: X-rays of the face from 2013. FINDINGS: No radiopaque intraorbital foreign body. Bony orbits grossly intact. Paranasal sinuses grossly clear. Visualized portion of the calvarium intact. IMPRESSION: No intraorbital metallic foreign body to preclude MRI exam. Electronically signed by: Sancho Rivera M.D. 05/01/2018 7:08 PM
--- NOTE | 2018-05-01 19:10 | XRay Report ---
XR chest 2V routine CLINICAL HISTORY: 32 years-old Male presenting with chest pain,SOB. TECHNIQUE: PA and lateral views of the chest were obtained. COMPARISON: 04/13/2018. FINDINGS: Cardiomediastinal silhouette normal. Lungs and pleural spaces clear. Osseous structures normal. Overl apping external leads project over the right upper quadrant degrading evaluation in this region. IMPRESSION: 1. No acute cardiopulmonary disease. Electronically signed by: Sancho Rivera M.D. 05/01/2018 7:09 PM
[2018-05-01 20:54] LABS: Appearance Urine Clear (Clear); Bilirubin Urine Negative (Negative); Color Urine Yellow; Glucose Urine UA Negative (Negative); Ketones Urine Negative (Negative); Leukocyte Esterase Urine Negative (Negative); Nitrite Urine Negative (Negative); Protein Urine Negative (Negative); Specific Gravity Urine 1.012 (1.000-1.030); Urobilinogen Urine Negative (Negative)
[2018-05-01] MEDS: DOXYCYCLINE HYCLATE 100 MG CAP PO SCH (21:46)
[2018-05-02] MEDS ORDERED: GADOBUTROL 65ML VIAL IV PRN (01:37)
--- NOTE | 2018-05-02 06:40 | Magnetic Resonance Report ---
MRI OF THE BRAIN WITHOUT AND WITH IV CONTRAST CLINICAL HISTORY: blurry vision,paresthesias,weakness COMPARISON STUDY: No previous studies for comparison. TECHNIQUE: MRI of the brain was performed from the vertex to the skull base utilizing various T1 and T2 weighted sequences. Following the IV administration of 8.4 mL of Gadavist contrast, additional enh anced images were obtained. FINDINGS: Sagittal T1, axial diffusion, proton density and T2 weighted axial, coronal FLAIR, and pre and post a xial T1-weighted images were acquired. These were supplemented with post gadolinium coronal T1 weight ed images. No intra or extra-axial mass lesions are visualized. Axial diffusion-weighted images reveal no evidence of acute or subacute infarction. There is no evidence of ventricular dilatation. Proton density T2-weighted and FLAIR images reveal no significant intraparenchymal signal abnormaliti es. There are no abnormal flow voids. There is no evidence of pathologic enhancement. IMPRESSION: Normal MRI of the brain. Electronically signed by: Randy Lozano M.D. 05/02/2018 6:38 AM
--- NOTE | 2018-05-02 07:04 | Magnetic Resonance Report ---
MR thoracic spine wo/w con CLINICAL HISTORY: 32 years-old Male presenting with blurry vision episodes for 1 hour daily, no histo ry of trauma, numbness and weakness in the arms and legs beginning Saturday, extreme dizziness which began this month, constant headache. TECHNIQUE: Multisequence, multiplanar MR imaging of the thoracic spine was performed before and after the administration of intravenous contrast. IV contrast: 8.4 mL of Gadavist. COMPARISON: Comparison made to CTA of the chest from 04/13/2018. FINDINGS: Localizer images: Unremarkable. A marker is in place over the level of T9-10. No immediate subjacent abnormality. Normal thoracic kyphosis. Vertebral bodies maintain normal height, alignment, and bone marrow signal intensity. Intervertebral discs are centrally preserved. No generative change. No fracture or subluxa tion. No neural foraminal or spinal canal narrowing. Thoracic spinal cord is normal in morphology and signal intensity. No upper dural collection. No abnormal enhancement on postcontrast imaging. Remain ing visualized soft tissues within normal limits. IMPRESSION: Normal contrast-enhanced MR examination of the thoracic spine. Electronically signed by: Sancho Rivera M.D. 05/02/2018 7:02 AM
--- NOTE | 2018-05-02 07:12 | Magnetic Resonance Report ---
MRI OF THE CERVICAL SPINE WITH AND WITHOUT CONTRAST CLINICAL HISTORY: Blurry vision,paresthesias,weakness. COMPARISON: None. TECHNIQUE: Utilizing a 1.5 Bing magnet and dedicated coil, multiplanar, multiecho imaging of the ce rvical spine was performed before and after intravenous administration of 8.4 of Gadavist. FINDINGS: Alignment of the cervical spine is anatomic. Vertebral body heights are maintained. There is no fract ure. There is no marrow replacement. Cervical cord signal and caliber are normal. There is no intraca nalicular mass or fluid collection. There is no abnormal enhancement within the canal. Paravertebral soft tissues are unremarkable. No disc herniation is present. Central canal and neural foramen are pa tent. C2-C3: The central canal and neural foramen are patent. C3-C4: The central canal and neural foramen are patent. C4-C5: The central canal and neural foramen are patent. C5-C6: The central canal and neural foramen are patent. C6-C7: The central canal and neural foramen are patent. C7-T1: The central canal and neural foramen are patent. IMPRESSION: Unremarkable MRI of the cervical spine. Electronically signed by: Malick Mueller M.D. 05/02/2018 7:10 AM
[2018-05-02] MEDS: DOXYCYCLINE HYCLATE 100 MG CAP PO SCH (08:27)
[2018-05-02 13:21] VITALS: TEMP 98.2; O2SAT 97
--- NOTE | 2018-05-02 13:36 | Neurology Consultation ---
Date of Consultation May 02, 2018 Assessment & Plan (1) Weakness: This is a 32-year-old male who presents with multiple fluctuating symptoms including weakness, fatigue, vertiginous dizziness, chest burning, shortness of breath, muscular back pain, nonspecific low-grade headache, numbness and tingling, blurry vision, muscle spasms and cramps. Overall I can say with confidence that the patient does not have any signs of multiple sclerosis or Guillain-Llamas syndrome. In addition he does not appear to have any central neurological process for his symptoms. I also think it is unlikely that he has any neuromuscular etiology for symptoms. Patient's ELIU titer is elevated and he certainly could have some rheumatological etiology or inflammatory disorder causing symptoms versus an infectious etiology since he is often in the [place]apa with multiple tick bite history. Recommendations: I do not think that the patient needs any additional imaging I have sent off numerous labs including ELIU 12 panel, anaplasmosis, CMV, West Nile virus, CK, heavy metal screen, ferritin and iron, copper and ceruloplasmin , vitamin B6, and vitamin D to look for other secondary etiologies for his symptoms. Patient can follow-up in neurology clinic in 2 weeks to go over results, and advised the patient that he should citrus picker results of his labs done at [facility] to take with him to his rheumatology consultation in [place] as well. History of Present Illness Reason for Consultation: Consultation for multiple symptoms and concern for neurological etiology (patient reports specifically his primary care was concern for Guillain-Llamas syndrome) Attending Physician: Kaleigh Alexandre MD History of Present Illness This is a 32-year-old left-handed male who presents for the above symptoms have been occurring for about a month. He does report that there was some sort of weakness, chest pain, shortness of breath that occurred January 2017, but he feels that this is a different episode. He reports that the end of March is when symptoms started. He felt like his chest was tight and had shortness of breath. He felt generally weak and fatigued. He was having dizziness described as vertigo spinning type sensation. He would sometimes feel a burning in his chest. He then started to get tightness that went down his left arm and leg. He was having back pain in his both thoracic region. Continued to feel frequently dizzy. Went to the emergency room April 13. At that point he started having constant low-grade headaches. Describes the headaches as bandlike. Patient denies any headache history and no history of migraines. Reports significant fatigue at this point. Reported chest pain that he describes as pressure. [place] like in the evenings everything seemed to worsen in terms of his symptoms of shortness of breath, burning chest, dizziness that was worse with movement. Patient reports he saw pulmonology . Reports that at this point he had numbness going down the back of his arms and into his fourth and fifth fingers bilaterally. Sometimes would be left side, sometimes right side, sometimes in bilateral. It was intermittent but tended to be more on the left side compared to the right. Also reported significant arm weakness and trouble holding things for any amount of time. Patient was placed on antibiotics and a prednisone course to see if this would help his symptoms. Saturday after seeing pulmonology the patient reported various muscle spasms and twitches as well as cramps in various parts of his body and face. Started to have tingling in his bilateral lower extremities. Intermittent bilateral arm numbness. He also had an episode where the roof his mouth went numb more on the right side compared to the left. Lasted about 10 minutes and then resolved. Reports that his coordination has been off and he is typically out of the thapa and tripped over a log which was unusual for him. Saturday he had worsening of symptoms. He was more dizzy especially with movement. The numbness in his fourth and fifth finger bilaterally lasted several days. He was having back pain in the thoracic region. [place] like his ribs were tender. Saturday felt the same and stopped his prednisone due to concerns of some of his worsening symptoms could have been due to prednisone. Saturday reports having a dry cough and but his chest felt better. Overall he is felt like his coordination has been off for the last week. He is also been having intermittent blurriness of the right eye as though he is losing focus. He reports 4-5 episodes of this occurring. Unclear if related to dizziness or headaches. Patient also overall feels slowed down. Fatigue. Feels like his thinking and concentration is decreased. Review of systems he denies any fevers or rashes. No skin changes. No specific muscle or joint pain Labs: For the most part unremarkable with the exception of an elevated ELIU titer of 1: 320. Vitamin B12 level was within normal limits of 539. Otherwise CBC, complete metabolic panel, TSH, Mercedes bar virus (positive for past exposure), RPR, Lyme with Western blot, mono screen, ESR, were all unremarkable. MRI of the brain report and images reviewed by myself and completely normal. In addition reviewed MRI C-spine and T-spine which were also normal. No signs of stroke, mass, inflammatory changes or multiple sclerosis. Past medical history: Denies any significant history Family history: Significant for half sister who has Chad-Danlos syndrome type III. 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 Is often in the thapa and reports multiple tick bites. No tobacco or alcohol use. No illegal drug use. Allergies Allergy/AdvReac Type Severity Reaction Status Date / Time No Known Allergies Allergy Verified 04/13/18 18:30 Home Medications Home Medications Medication Instructions Recorded Confirmed Type meclizine 25 mg PO TID PRN #14 tab 04/13/18 05/01/18 Rx naproxen sodium [Aleve] 220 mg PO BID PRN 04/13/18 05/01/18 History doxycycline hyclate 100 mg PO BID 05/01/18 05/01/18 History Patient History Medical History Seasonal allergies Chest pain (Chronic) Atypical chest pain (Inactive) Surgical History History of tonsillectomy Family History Uncle , at age 32 Heart attack Sister Chad-Danlos disease Hypothyroidism Thyroid nodule Mother Tachyarrhythmia Father Prostate cancer Other Heart disease Social History marital status: Single Current Living Situation: Alone Current Living Situation Comment: Previously sexually active with females, uses protection, no history of STIs current occupational status: employed 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 [employer] Other Information That Helps Us Care for You: No other: Graduated from [employer] Feels Safe at Home: Yes Smoking Status: Former smoker Tobacco Type: cigarettes Years Smoked: 7 Smoking End Date: 2015 Hx Alcohol Use: No Hx Substance Use: No Beliefs That Will Affect Care: None Preferred Language: Nauruan Communication Ability: Effective Review of Systems Complete review of systems otherwise negative except for the above-noted in HPI Physical Exam 2 Vital Signs (Past 24 Hours): Last Vital Signs Temp 36.8 C 05/02/18 11:28 Pulse 70 05/02/18 11:28 Resp 20 05/02/18 11:28 BP 129/79 05/02/18 11:28 Pulse Ox 97 05/02/18 11:28 Physical Exam: Gen.: Patient is alert and oriented in no acute sitting in chair Heart: Regular rate and rhythm Extremities: No gross deformities or rashes noted Neurological examination: Mental status: Patient is alert and oriented to person place and time. Able to give his own history. Attention concentration normal for the situation. Remote and recent memory intact Speech is fluent without any dysarthria or aphasia noted Cranial nerves: Visual reynoso intact. Funduscopic examination is unremarkable with no signs of papilledema. Pupils equally round and reactive to light. Extraocular muscles intact without nystagmus. No facial asymmetry noted. Facial sensation intact. Tongue midline. Good palatal elevation. Good shoulder shrug bilaterally. Hearing grossly intact voice. Strength: 5/5 both proximal and distal in all extremities. Patient was able to stand on his toes and heels. He was able to stand from a squatted position. Tone is normal. Sensation: Grossly intact to light touch and sharp in all extremities. Mild swaying with Romberg testing. Deep tendon reflexes: +2 in bilateral biceps and patellar. Toes are equivocal to plantar stimulation bilaterally Coordination: Patient has good finger to nose without dysmetria. Gait was within normal limits and appeared stable without any signs of ataxia. Tandem gait intact. Patient does have some muscular back pain to palpation in the paraspinal muscles in the thoracic region.
--- NOTE | 2018-05-02 14:03 | Discharge Summary ---
Date of Service May 02, 2018 Admission HPI Per Admitting Provider This patient is a 32-year-old male with a history of seasonal allergies and a 1 year history of intermittent chest pain with radiation to the left upper and lower extremity, who presents with 1 month of progressively worsening symptoms which mainly include dry cough, worsening shortness of breath, severe fatigue, dizziness, heaviness and tight feeling in the left lower extremity, diffuse muscle spasms but mostly pains in the upper and lower back, constant mild headache, and bilateral upper extremity numbness in the distribution of the ulnar side of the forearm and the fourth and fifth digits of each hand. He has also had blurry vision in the right eye off and on the last several days and did have one episode of numbness in the roof of his mouth. The chest pain, shortness of breath, and left-sided heavy sensation has been coming and going for over a year since he had a trip to [facility]. Since that time, he had a normal cardiac workup to include echocardiogram, 24-hour Holter monitor, ECG. In the last month, however those symptoms have all gotten progressively worse and become constant and more severe. 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 He was seen in the ER on 04/[address] angiogram of the chest that was negative for PE or any other abnormality. He also reports worsening dizziness like the room is spinning around him and sometimes with tunnel vision, as well as a mild bitemporal headache that radiates to the parietal and occipital regions bilaterally and not associated with photophobia, but is associated with nausea for the last 3-4 weeks. He is also had intermittent right eye blurry vision that comes on for 1-2 hours at a time and then goes away. He has not seen an thermodynamicist. He was referred to a general assembler installer whom he saw 1 week ago who ordered a variety of studies including carotid Doppler, lower extremity arterial Doppler, hypersensitivity pneumonitis panel, Lyme titer, immunoglobulins, IgE, all of which were normal. He was started on Doxycycline and prednisone, but 2 days after starting these medications is when he experienced the paresthesias and numbness in the ulnar distribution of the bilateral upper extremities; he decided to stop the prednisone thinking it was a possible side effect. ROS: He denies any fevers but has had some sweats and chills. He has lost 10 pounds in the last month unintentionally. He denies any lymphadenopathy that he is noted. He denies abdominal pains or urinary symptoms, no changes in bowel habits, no blood in the stool or urine. Denies any other joint pains or swelling. He denies any other rashes He has been bit by a tick at least "50-60 times" in his life and he works at a [employer] [place] in [place] [employer]. He conversed with his PCP who asked that we directly admit the patient to expedite a neurological workup given the progressive nature of his symptoms. I personally spoke with his PCP on the phone regarding his history and current condition. Principal Diagnosis Dizziness,blurry vision,weakness, dizziness Discharge Exam Constitutional WD/WN, vitals as above + well hydrated, average body habitus, well groomed and cooperative; no acute distress, not ill appearing, not diaphoretic and not lethargic Eyes PERRL, conjunctivae normal, anicteric sclerae ENMT external ear and nose normal, oropharynx normal Ears: no hearing impairment Mouth: no lip abnormality Neck trachea midline, no thyromegaly normal visual inspection Respiratory normal respiratory effort, lungs clear to auscultation Cardiovascular RRR, no murmur, no edema Heart Sounds: normal S1 and normal S2; no gallop Gastrointestinal (Abdomen) normal bowel sounds, soft, nontender, no hepatosplenomegaly Inspection/Auscultation: abdomen not distended and no abdominal wall ecchymosis Musculoskeletal Extremities: extremities normal to inspection; no cyanosis and no clubbing Skin no rashes, warm and dry Neurologic Coordination: normal Romberg test and normal tandem gait Psychiatric A+Ox3, euthymic affect Discharge Data Allergies Allergy/AdvReac Type Severity Reaction Status Date / Time No Known Allergies Allergy Verified 04/13/18 18:30 Consultations Neurology Ordered Studies 05/01/18 17:11 MR brain wo/w con Routine 05/01/18 17:16 MR cervical spine wo/w con Routine MR thoracic spine wo/w con Routine Hospital Course (1) Paresthesias: This patient is a 32-year-old male with a history of seasonal allergies and a 1 year history of intermittent chest pain with radiation to the left upper and lower extremity, who presents with 1 month of progressively worsening symptoms which mainly include dry cough, worsening SOB, severe fatigue, dizziness, heaviness and tight feeling in the left lower extremity, diffuse muscle spasms but mostly pains in the upper and lower back, constant mild headache, and bilateral upper extremity numbness in the distribution of the ulnar side of the forearm and the fourth and fifth digits of each hand. He has also had blurry vision in the right eye off and on the last several days and did have one episode of numbness in the roof of his mouth. His symptoms are diffuse but seem like they could all be interrelated with either a neurological disorder or perhaps an autoimmune disorder given his strongly positive ELIU. He does have a pending appointment with a inside solar sales consultant at [facility] in [place] on May 08 that he should keep regarding his positive ELIU and his symptoms. Lyme disease titer again is negative on multiple occasions despite his significant exposure to Lyme disease. I do feel that he warrants an expedited neurological workup as well to rule out intracranial lesion, or spinal cord lesion, multiple sclerosis. With the blurry vision in the right eye, need to consider optic neuritis. -Admitted to telemetry given the chest pain and shortness of breath symptoms for further cardiac workup as below-no arrhythmias on monitoring -Consult neurology for further evaluation and recommendations as appreciated- infectious vs rheumatological, not MS or GBS. Sent off further studies to rule out heavy metal poisoning, myasthenia gravis -RPR, B12, and repeat Lyme titer here all negative - MRI of the brain, cervical spine, and thoracic spine all with contrast were all completely normal -Neuro did not feel any further imaging or testing other than labs were necessary at this time -Will need PCP and Neuro to f/u on labs drawn on day of discharge -he will keep his appointment with Rheumatology for next week given his high titer of ELIU -advised to treat empirically for Lyme with doxycycline 100mg po bid x 4 weeks- he has a supply of this at home (2) Dizziness: He reports worsening dizziness like the room is spinning around him and sometimes with tunnel vision, as well as a mild bitemporal headache that radiates to the parietal and occipital regions bilaterally and not associated with photophobia, but is associated with nausea for the last 3-4 weeks. He is also had intermittent right eye blurry vision that comes on for 1-2 hours at a time and then goes away. 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 Since that time, he had a normal cardiac workup to include echocardiogram, 24-hour Holter monitor, ECG. In the last month, however those symptoms have all gotten progressively worse and become constant and more severe. 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 He was seen in the ER on 04/[address] angiogram of the chest that was negative for PE or any other abnormality. ECG here is normal There is no evidence on exam of congestive heart failure. Chest x-ray is normal here again. Troponin is negative He could have some sort of pericarditis although less likely without ECG changes This has seemed to have gotten better after several doses of prednisone which is now discontinued, as well as starting on doxycycline Perhaps it was some sort of atypical pneumonitis that is now improving with doxycycline and 2 doses of prednisone - echocardiogram was done at [facility] last week-pt was told it was all normal- requested copy of this but did not come in before pt left the hospital -Continue doxycycline 100 mg p.o. twice daily for now to finish out a 28 day course as above (6) Fatigue: Monospot has been negative, Lyme disease negative, unclear with the causes Could be something autoimmune related given the positive ELIU -Continue workup here as outlined -Keep appointment with rheumatology next week (7) Weakness: In the left upper and lower extremity subjectively, but none in exam here. He reports this is intermittent -Checking MRI of the brain, cervical and thoracic spine as above -Appreciate neurology recommendations (8) Dyspnea: Pulse ox at rest here is 95% on room air, pulse ox with ambulation does go down to 92% which is abnormal. Was improved by the next day to 97% on RA Chest x-ray is normal. ABG here is normal He had CT angiogram 1 month ago when he had similar symptoms that was negative for pulmonary embolism Echocardiogram reportedly normal -Continue treatment with doxycycline for bronchitis (9) Back pain: Coming and going, likely related to systemic process -Tylenol as needed for pain -MRIs for workup as above (10) DVT prophylaxis: SCDs Disposition-stable for dc to home Total Time Total Time Spent Total Time Spent (In Minutes): >30 min Total Time Includes: Examination of the Patient, Discharge Planning, Medication Reconciliation and Communication With Other Providers (Discussed with Neurology) Discharge Plan Discharge Items Patient Disposition: Home - Self-Care Reason For Visit: LOWER EXTREMITY WEAKNESS Discharge Diagnosis: Paresthesias, weakness, vertigo Condition: Good Discharge Goals: Diagnostic testing and Learn about illness Activity: Resume your previous activity Lifting: Gradually increase as tolerated Bathing: No limitations Exercise/Sports: Gradually increase as tolerated Driving/Machine Use: No limitations Driving/Machine Use Comment: But if feeling dizzy, do not drive Non-emergency contact: Primary Care Provider and Neurologist Call non-emergency contact if: you have any medication questions, your symptoms worsen, your pain is not controlled, your pain is worsening, your pain is unusual for you, your pain is concerning for you, you have a fever and your temperature is above 100.5 Follow-up/Referrals: Javi Goddard PA-C [Physician Icing Coater] - 05/07/18 11:30 am (Please, follow up at [facility] Pulmonology Office with Tio Goddard PA-C on SaturdayMay 07 at 11:30 am. *This office is located in [address] [facility] to this [facility]. If you need to change this appointment, call the office at [phone].) Natalia Osorio DO [Physician] - 05/15/18 12:40 pm (Please, follow up at [facility] Neurology Office with Dr. Osorio on May 15 at 1:00 pm (arrive 12:40 pm). *This office is located at [address] in [place]. If you need to change this appointment, call the office at [phone].) Poli Eddy MD [Surgeon] - 05/08/18 1:30 pm (Please, follow up at [facility] with Dr. Diggs on May 08 at 1:45 pm (arrive 1:30 pm). This office is located at [address] in [place]. If you need to change this appointment, call the office at [phone].) Alondra Khan, DO [Primary Care Provider] - (Please, follow up with Dr. Khan at [facility]- the nurse will call you with the appointment details. *The office phone number is [phone].) Diet: Regular Addtl Provider Instructions: You were admitted due to multiple atypical neurological symptoms and had an extensive workup here. We do not suspect that you have multiple sclerosis her Guyon Llamas syndrome. It is possible that you have something infectious like Lyme disease and I do recommend that you take a 28-day course of the doxycycline that has already been prescribed to you. This certainly also could be a rheumatological/autoimmune disorder given that you do have a positive antinuclear antibody titer. It is very important that you keep the appointment with the inside solar sales consultant as scheduled for next week. There are multiple blood tests that are still pending at this hospital and when the results come in, your doctor should receive a copy of them. If not, these can be requested from the hospital. We will also facilitate an expedited ophthalmology (eye doctor) appointment for you due to the blurry vision in the right eye. Please follow-up with your primary care physician, the general assembler installer, and the neurologist all as scheduled for you as above. Prescriptions: New meclizine 25 mg tablet 25 mg PO TID PRN (Reason: dizziness) Qty: 30 RF: 0 Continue naproxen sodium [Aleve] 220 mg Tablet 220 mg PO BID PRN (Reason: Pain) RF: 0 doxycycline hyclate 100 mg Tablet 100 mg PO BID 28 Days Qty: 0 RF: 0 Discontinued meclizine 25 mg tablet 25 mg PO TID PRN (Reason: dizziness) Qty: 14 RF: 0 Visit Report Forms: My [facility] [employer] Portal Stand-Alone Forms: My [facility] Discharge Orders: Discharge Order (Routine); Ordered 05/02/18 Ordered By: Kaleigh Alexandre Admission Data Admit Date/Time: 05/01/18 15:01 Attending Provider: Kaleigh Alexandre Admit Provider: Kaleigh Alexandre Primary Care Provider: Alondra Khan Other Providers: Natalia Osorio Service: Telemetry Other Interventions: Discharge Summary Assessment (RN) Last Done: 05/02/18 14:28 Pending Studies at Discharge: Yes (CPK, anaplasmosis titer, copper level, iron level, heavy metal panel, ceruloplasmin) Studies:: acetylcholinesterase antibodies, CMV, ceruloplasmin, B6, vitamin D DC Date/Time DO NOT enter until pt leaves facility: 05/02/18 14:37
[2018-05-02 14:29] VITALS: BP 116/78; PULSE 67
[2018-05-06 17:34] LABS: Anti Cardiolipin Ab IgG <14 GPL (< = 14); Anti Cardiolipin Ab IgM <12 MPL (< = 12); Anti Nuclear Antibody Screen POSITIVE (NEGATIVE); Anti-Centromere Ab <1.0 NEG AI (<1.0 NEG); Anti-SS-A <1.0 NEG AI (<1.0 NEG); Anti-SS-B <1.0 NEG AI (<1.0 NEG); CMV IgG Antibody <0.60 U/ML; CMV IgM Antibody <30.00 Au/mL; Chromatin Antibody <1.0 NEG AI (<1.0 NEG); Complement C3 123 MG/DL (82-185); DNA ds Crithidia NEGATIVE (NEGATIVE); Microsomal Ab 2 IU/ML (<9); Sm Antibody <1.0 NEG AI (<1.0 NEG)
[2018-05-08 22:29] LABS: Anaplasma phagocytophila IgM <1:20 (<1:20); Ceruloplasmin 23 MG/DL (18-36); Copper, Serum 81 mcg/dL (70-175); Vitamin B6 85.1 ng/mL (2.1-21.7)
[2018-05-09 15:49] LABS: ANA Pattern HOMOGENEOUS; West Nile Virus PCR Not Detected (Not Detected)
== END 2018-05-02 14:37 | disposition home or self-care (01) | DRG 93 ==
LOC: 2S 15:01